=== PATIENT | male | born 1950 | race Caucasian/White ===

== ENCOUNTER 2022-06-26 06:00 | Day surgery (SDC) | payer MEDICARE ==
[2022-06-24 09:41] VITALS: BP 148/76
--- NOTE | 2022-06-24 09:52 | PCM.EKG ---
[facility] Test Date: 2022-06-24 Test Time: 09:50:39 Pat Name: NUNU KRISHNAMURTHY Department: Room: Gender: M Director Medical Economics: JOLENE : 1950 Requested By: TINO ROJAS Order Number: [id number] Reading MD: Measurements Intervals [place] Rate: 51 P: 56 ME: 234 QRS: 72 QRSD: 102 T: 48 QT: 452 QTc: 416 Interpretive Statements Sinus bradycardia with 1st degree AV block Compared to ECG 12/02/2017 09:32:12 First degree AV block now present Left ventricular hypertrophy no longer present Please click the below link to view image of tracing.
[2022-06-24 10:15] LABS: BASOPHIL # 0.1 10^3/uL (0.0-0.1); BASOPHIL % 1.2 % (0.0-0.2); EOSINOPHIL # 0.3 10^3/uL (0.0-0.2); EOSINOPHIL % 6.4 % (0.0-5.0); LYMPHOCYTES # 1.29 10^3/uL1 (1.0-4.8); LYMPHOCYTES % 25.8 % (24.0-44.0); MEAN CORP HGB 28.7 pg (26-34); MONOCYTES # 0.3 10^3/uL (0.3-0.8); MONOCYTES % 6.8 % (5.0-12.0); NEUTROPHILS % 59.8 % (41.0-85.0); RED CELL DISTRIBUTION WIDTH 12.7 % (11.5-14.5)
[2022-06-24 10:31] LABS: CARBON DIOXIDE 27.8 mmol/L (20.0-32)
[~2022-06-26] VITALS: Ht 172.7 cm; Wt 78.0 kg
[2022-06-26 06:00] VITALS: BP 161/75
[~2022-06-26 06:00] MED LIST: ANCEF IV ONE; ASPI-485 PO; ATOR20TA PO; BUDE10.2 IH; CLOP75TA52 PO; DICL75TA2 PO; ESOM20CA PO; FEXO180T72 PO; FEXO60TA24 PO; GABA300C PO; KRIL500C PO; LACTATED RINGERS 1,000 ML IV SCH; LACTATED RINGERS 1,000 ML ONE; LOSA100T14 PO; METO-236 PO; METO100T5 PO; MOME13HF IH; OMEP20CA19 PO; TADA5TAB PO; TAMS-14 PO; UBID100C23 PO; UBID30CA9 PO
[2022-06-26] MEDS ORDERED: ANCEF ONE (06:01)
[2022-06-26] MEDS ORDERED: NS 100ML 100 ML IV ONE (06:01)
[2022-06-26] MEDS ORDERED: SODIUM CHLORIDE IRR BOTTLE IR ONE (08:07)
[2022-06-26] MEDS ORDERED: XYLOCAINE ONE (08:07)
[2022-06-26] MEDS ORDERED: XYLOCAINE 2% 5ML VIAL ONE (08:36)
[2022-06-26] MEDS ORDERED: ZOFRAN ONE (08:36)
[2022-06-26] MEDS ORDERED: SUBLIMAZE ONE (08:36)
[2022-06-26] MEDS ORDERED: DECADRON ONE (08:36)
[2022-06-26] MEDS ORDERED: DIPRIVAN IV ONE (08:36)
[2022-06-26] MEDS ORDERED: TORADOL ONE (08:37)
[2022-06-26] MEDS ORDERED: SENSORCAINE-MPF 0.25% VIAL ONE (08:39)
[2022-06-26] MEDS ORDERED: EXPAREL 266 MG/20 ML VIAL IJ ONE (08:39)
[2022-06-26 09:54] VITALS: BP 132/77
[2022-06-26 10:15] VITALS: BP 129/77
[2022-06-26 10:31] VITALS: BP 162/83
--- NOTE | 2022-06-26 10:35 | OPH ---
DATE OF SURGERY: 06/26/2022 DICTATOR NAME: Chito Blanchard DO PREOPERATIVE DIAGNOSIS: Lipoma on the back. POSTOPERATIVE DIAGNOSIS: Complex lipoma on the back. SURGEON: Chito Blanchard DO FLAME CUTTING SUPERVISOR: OR staff. ANESTHESIA: General by Wilber awrner CRNA plus local used on the field. PROCEDURES PERFORMED: 1. Excision of lipoma on the back. 2. Intermediate level layered closure x 7.2 cm in 3 layers. ESTIMATED BLOOD LOSS: 37 mL. At completion of the case, the counts were correct per OR staff. DESCRIPTION OF PROCEDURE: The patient is a very pleasant 72-year-old male known from previous evaluation. Prior to procedure, informed consent was obtained. At the time of procedure, he was taken to the operative suite and placed in supine position. With appropriate monitoring in place, he was repositioned in left lateral recumbent position. A preprocedure safety checklist with time-out was completed with assistance of nursing service. His back was then prepped and draped. With appropriate sedation, the area of concern was localized. A transverse incision was created. Electrocautery was used to control bleeding and dissect down to the level of what appears to be a fibrous capsule around an apparent lipoma. The lipoma appears to be fairly large in size. It is densely adhesed to the surrounding tissues and extends to the deeper tissues past the layer of the muscle. This lesion was removed circumferentially and right to left using electrocautery and blunt dissection. Once the lipoma was completely removed, the wound bed was copiously irrigated with sterile saline. Any bleeding identified was controlled with electrocautery. Meticulous hemostasis noted, irrigation, suction, and closure pursued. The deep tissues were loosely approximated with interrupted 0 Vicryl. Initially, the subcutaneous was loosely approximated with 3-0 Vicryl; however for bleeding, these were removed and inspection was made to deeper tissues with good hemostasis noted. A drain was placed through the midline of the incision and secured with interrupted Nurolon sutures. Subcutaneous was loosely closed deeply with 0 Vicryl sutures. The skin was closed with interrupted 2-0 Nurolon in a mattress fashion. Total closure width is 7.2 cm. This is more than 2 layers of intermediate level layered closure. A sterile dressing was applied. The drapes were removed. The patient tolerated the procedure well. There were no acute complications noted. Chito W. DODr. Chito Blanchard D.O. DR: SARAHI TID: [id number] RECEIPT: [id number]
[2022-06-26 10:45] VITALS: BP 161/80
== END 2022-06-26 11:00 | disposition home or self-care (01) ==
LOC: SDC 06:00
PROVIDERS: ATTEND Surgery
DX: D17.1 Benign lipomatous neoplasm of skin and subcutaneous tissue of trunk (principal); C76.8 Malignant neoplasm of other specified ill-defined sites; I10 Essential (primary) hypertension; J45.909 Unspecified asthma, uncomplicated; K21.9 Gastro-esophageal reflux disease without esophagitis; I25.110 Atherosclerotic heart disease of native coronary artery with unstable angina pectoris; E78.5 Hyperlipidemia, unspecified; Z95.0 Presence of cardiac pacemaker; Z98.890 Other specified postprocedural states; Z90.49 Acquired absence of other specified parts of digestive tract; Z98.41 Cataract extraction status, right eye; Z98.42 Cataract extraction status, left eye; Z87.891 Personal history of nicotine dependence; Z82.49 Family history of ischemic heart disease and other diseases of the circulatory system; Z82.0 Family history of epilepsy and other diseases of the nervous system; Z82.5 Family history of asthma and other chronic lower respiratory diseases; Z79.82 Long term (current) use of aspirin; Z79.899 Other long term (current) drug therapy; Z88.0 Allergy status to penicillin; Z79.01 Long term (current) use of anticoagulants; Z95.5 Presence of coronary angioplasty implant and graft
CPT/HCPCS: 93005; 80053; 85025; 36415; 85610; 85730; 21931; 88305; J7120; J1100; A4217; J3490 ×2; J2001 ×2; J2405; J1885; J3010; C9290

== ENCOUNTER → 2022-11-25 | Outpatient (CLI) | payer MEDICARE, OTHER ==
[~2022-11-25] MED LIST changes: -ANCEF IV ONE; +CLOP-28 PO; -CLOP75TA52 PO; -LACTATED RINGERS 1,000 ML IV SCH; -LACTATED RINGERS 1,000 ML ONE; -MOME13HF IH; +MOME13HF11 IH
[2022-11-25 10:51] LABS: BASOPHIL # 0.1 10^3/uL (0.0-0.1); BASOPHIL % 1.2 % (0.0-0.2); EOSINOPHIL # 0.2 10^3/uL (0.0-0.2); LYMPHOCYTES # 1.16 10^3/uL1 (1.0-4.8); LYMPHOCYTES % 22.3 % (24.0-44.0); MEAN CORP HGB 28.4 pg (26-34); MONOCYTES # 0.4 10^3/uL (0.3-0.8); MONOCYTES % 7.1 % (5.0-12.0); NEUTROPHIL # 3.4 10^3/uL (1.8-7.7); NEUTROPHILS % 65.4 % (41.0-85.0); PLATELET COUNT 198 10^3/uL (150-400); RED CELL DISTRIBUTION WIDTH 12.8 % (11.5-14.5)
[2022-11-25 10:58] LABS: BILIRUBIN,URINE NEGATIVE (NEGATIVE); UROBILINOGEN,URINE 0.2 E.U./dL (0.2)
[2022-11-25 11:16] LABS: CARBON DIOXIDE 30.3 mmol/L (20.0-32)
--- NOTE | 2022-11-25 13:31 | DIREP ---
PROCEDURE:XR ABDOMEN 2 VIEWS COMPARISON:None. INDICATIONS:N20.0 CALCULUS OF KIDNEY TECHNIQUE:Flat and upright views of the abdomen are provided. FINDINGS: BOWEL GAS PATTERN:Normal. CALCIFICATIONS:None significant. LUNG BASES:Clear. 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 Left-sided arthroplasty without complication. Partially visualized posterior fusion hardware of the spine. Median sternotomy wires.. OTHER:No additional findings. CONCLUSION:Essentially normal examination. Please see above for incidental and/or clinically insignificant findings. Dictated by: Christopher Sharma DO on 11/25/2022 at 01:28 PM
== END | disposition home or self-care (01) ==
LOC: RAD 10:09
PROVIDERS: ATTEND Nurse Practitioner Family
DX: N20.0 Calculus of kidney (principal); M16.9 Osteoarthritis of hip, unspecified; R30.0 Dysuria
CPT/HCPCS: 36415; 74019; 80053; 81003; 85025; 87086

== ENCOUNTER → 2024-02-10 | Outpatient (CLI) | payer MEDICARE, BC ==
[~2024-02-10] MED LIST changes: -LOSA100T14 PO; +LOSA100T15 PO
== END | disposition home or self-care (01) ==
LOC: RAD 10:55
PROVIDERS: ATTEND Nurse Practitioner Family
DX: M19.011 Primary osteoarthritis, right shoulder (principal); M54.2 Cervicalgia; M25.511 Pain in right shoulder; M47.812 Spondylosis without myelopathy or radiculopathy, cervical region; M48.02 Spinal stenosis, cervical region; M25.78 Osteophyte, vertebrae; M95.4 Acquired deformity of chest and rib
CPT/HCPCS: 72040; 73030-RT